=== PATIENT | male | born 1965 | race Caucasian/White ===

== ENCOUNTER 2019-11-10 08:31 | Emergency (ER) | payer OTHER, SELFPAY ==
[2019-11-10 08:50] VITALS: BP 166/87; PULSE 63; RESP 18; TEMP 36.2; O2SAT 95
[2019-11-10] MEDS: LIDOCAINE HCL 2% PF INJ 5 ML VIAL (08:55)
--- NOTE | 2019-11-10 08:55 | ED.GENADULT ---
HPI - General Adult General Chief complaint: Skin/Abscess/Foreign Body Stated complaint: hook in finger Source: patient Mode of arrival: ambulatory History of Present Illness HPI narrative: Steve is a 54M with a PMH of HTN, HLD, DMII that presented to the ED with a fish hook in the 4th finger of the left hand that happened 1 hour before he came in. He has no other concerns or injuries. He tried to take it out but could not get it because of the keaton. He is unsure of his last tetanus shot. Related Data Home Medications Medication Instructions Recorded Confirmed amlodipine 5 mg PO DAILY 11/10/19 11/10/19 bisoprolol fumarate 10 mg PO DAILY 11/10/19 11/10/19 clonidine HCl 0.3 mg PO HS 11/10/19 11/10/19 hydrochlorothiazide 25 mg PO DAILY 11/10/19 11/10/19 hydrocodone-acetaminophen 1 tablet PO PRN PRN 11/10/19 11/10/19 insulin glargine U-300 conc 40 unit SUBCUT DAILY 11/10/19 11/10/19 [Toujeo SoloStar U-300 Insulin] insulin lispro [Humalog U-100 40 unit SUBCUT TIDWMEAL 11/10/19 11/10/19 Insulin] metformin 500 mg PO BID 11/10/19 11/10/19 rosuvastatin 5 mg PO DAILY 11/10/19 11/10/19 Allergies Allergy/AdvReac Type Severity Reaction Status Date / Time No Known Allergies Allergy Verified 11/10/19 09:04 Review of Systems Constitutional: Constitutional: Reports no additional constitutional complaints Eyes: Eyes: Reports no additional eye complaints ENT: Reports system reviewed and no additional complaints, except as documented Cardiovascular: Cardiovascular: Reports no additional cardiovascular complaints Respiratory: Respiratory: Reports no additional respiratory complaints Gastrointestinal: Gastrointestinal: Reports no additional gastrointestinal complaints Genitourinary: Genitourinary: Reports no additional male genitourinary complaints Musculoskeletal: Musculoskeletal: Reports no additional musculoskeletal complaints Integumentary/Breasts: Skin/Breast: Reports as per HPI Neurologic: Reports system reviewed and no additional complaints, except as documented Psychiatric: Psychiatric: Reports no additional psychiatric complaints Endocrine: Endocrine: Reports no additional endocrine complaints Hematologic/Lymphatic: Hematologic/Lymphatic: Reports no additional hematologic/lymphatic complaints Allergic/Immunologic: Allergic/Immunologic: Reports no additional allergic/immunologic complaints Exam Const: General: no acute distress Orientation/consciousness: patient oriented x3 Limitations: No altered mental status HENMT: Head: normal to inspection Eyes: Conjunctivae: conjunctivae normal Pupils: Equal, round and reactive pupils present Neck: Neck: normal visual inspection Chest: Chest palpation & inspection: normal inspection of the chest Resp: Effort & Inspection: normal respiratory effort Cardio: Rate: regular rate Other: no edema Skin: Other: small 1.5 cm fish hook lodged on on the lateral side of the 4th digit of the left hand Neuro: General: patient oriented x3 and moves all extremities Extrem: General: normal to inspection Psych: Mental Status: mental status grossly normal Course Course Emergency Course: Steve was seen and evaluated. He fish hook was removed as below and he was discharged. Procedures Foreign Body Removal Foreign Body #1: Site: left and other (hand ) Description of foreign body: fish hook Sedation/Analgesia: none Technique: removal with forceps Confirmed by:: direct visualization Complications: none Post-procedure exam: awake, alert Neurovascular: normal capillary fill Foreign Body Removal Narrative: The area was anesthesized with 2% lidocaine w/o epi. the fish hook was cut in two with wire cutters. The remaining portion was pushed through and came out in 1 piece without complication. The area was then cleaned and bandaged. Discharge Plan Discharge Clinical Impression: Fish hook injury of left hand
[2019-11-10] MEDS: TETANUS,DIPHTHERIA,AC PERTUSSIS ADULT 0.5 ML (ADACEL) IM (09:13)
[2019-11-10 09:15] VITALS: BP 140/82; PULSE 72; RESP 18; TEMP 36.6; O2SAT 97
== END 2019-11-10 09:20 | disposition home or self-care (01) ==
PROVIDERS: Emergency Provider Family Medicine
DX: S61.432A Puncture wound without foreign body of left hand, initial encounter (principal); W45.8XXA Other foreign body or object entering through skin, initial encounter
CPT/HCPCS: 90471; 90715; 99282

== ENCOUNTER 2023-06-25 12:20 | Emergency (ER) | payer OTHER, SELFPAY ==
[2023-06-25] VITALS (20 sets, daily range): BP systolic 124–179; BP diastolic 70–90; PULSE 65–85; RESP 15–20; TEMP 36.7; O2SAT 90–99
--- NOTE | ~2023-06-25 | XR_ITS ---
XR chest 2V DATE: 06/25/2023 13:03 INDICATION: Cough and wheezing for one month TECHNIQUE: 2 views COMPARISON: None FINDINGS: Status post anterior cervical spine surgical fusion at C6-7. Postoperative change at left shoulder. Heart size is within normal range. No hilar or mediastinal enlargement. No pulmonary infiltrate or co nsolidation, pleural effusion or pulmonary congestion or pneumothorax. Included skeletal structures are otherwise unremarkable. IMPRESSION: No active cardiopulmonary disease Reviewed, dictated and finalized at location A.
--- NOTE | 2023-06-25 12:31 | ECG_ITS ---
Measurements Intervals [place] Rate: 65 P: 28 NH: 183 QRS: -19 QRSD: 102 T: 11 QT: 383 QTc: 399 Interpretive Statements SINUS RHYTHM NO PREVIOUS ECG AVAILABLE FOR COMPARISON Electronically Signed On 06-25-2023 13:17:09 CDT by Chelsea Nagel M.D.
--- NOTE | 2023-06-25 12:31 | PC.NURSE ---
pt now complaint of chest pain/tightness. ekg order placed.
--- NOTE | 2023-06-25 12:45 | ED.GENADULT ---
HPI - General Adult General Chief complaint: Urogenital-Male Stated complaint: shortness of breath, urine dark Source: patient Mode of arrival: ambulatory Limitations: no limitations History of Present Illness HPI narrative: 58-year-old white male complains of mid back pain tightness when he takes a deep breath he has had a chronic cough without any changes. Says he has had some phlegm and a dry mouth. He has had 25 lb weight loss since being on Monjoro for weight loss. He has had chronic cough. She has had chronic hoarseness since 2018 and then since the last 6 months. He has had nausea from his medicine for weight loss denies any diarrhea or bleeding or bruising swelling lumps or bumps rash or itching. Denies any problems voiding he said his urines darker today or maybe since yesterday he is on sleep apnea CPAP he thinks he might have a lung infection from it because he has not been keeping it very clean. Denies any anterior chest pain denies any shortness of breath but feels tight in the back when takes a deep breath. He has not had any history of lung disease or venous thromboembolism. He has a history hypertension diabetes hyperlipidemia chronic left shoulder pain. He took a [place] before coming in. He has not seen his primary care provider Dr. Win in 3 months. He does see a cleat thrower but not seen 1 since 2018. Denies any other complaints Related Data Home Medications Medication Instructions Recorded Confirmed amlodipine 5 mg tablet 5 mg PO DAILY 11/10/19 06/25/23 bisoprolol fumarate 10 mg tablet 10 mg PO DAILY 11/10/19 06/25/23 clonidine HCl 0.3 mg tablet 0.3 mg PO HS 11/10/19 06/25/23 hydrochlorothiazide 25 mg tablet 25 mg PO DAILY 11/10/19 06/25/23 hydrocodone 10 mg-acetaminophen 1 tablet PO PRN PRN Pain 11/10/19 06/25/23 325 mg tablet insulin glargine U-300 conc 300 100 unit subcut DAILY 11/10/19 06/25/23 unit/mL (1.5 mL) subcutaneous pen (Toujeo SoloStar U-300 Insulin) insulin lispro 100 unit/mL 30 unit subcut TIDWMEAL 11/10/19 06/25/23 subcutaneous solution (Humalog U-100 Insulin) rosuvastatin 5 mg tablet 5 mg PO DAILY 11/10/19 06/25/23 tirzepatide 5 mg/0.5 mL 5 mg subcut WEEKLY 06/25/23 06/25/23 subcutaneous pen injector (Ethan) Allergies Allergy/AdvReac Type Severity Reaction Status Date / Time No Known Allergies Allergy Verified 11/10/19 09:04 Review of Systems Review of Systems: All systems reviewed & are unremarkable except as noted in HPI and below PMFSH Comments retired from the [employer] out[employer] office Exam Narrative: White male morbidly obesepatient with no apparent distress.? Head normocephalic, atraumatic.? Eyes conjunctiva pink sclera nonicteric.? Extraocular movements are intact.? Ears externally normal.? Oropharynx is clear with moist mucous membranes without exudates.? Neck is supple nontender no lymphadenopathy.? Back is minimally tender right parathoracic area. no CVA tenderness.? Lungs are clear.? Heart is regular rate and rhythm without murmurs gallops or rubs.? Chest wall nontender.? Abdomen is soft and nontender no hepatosplenomegaly or masses no CVA tenderness no abdominal bruits.? Extremities no cyanosis clubbing or edema.? Skin is warm and dry without rashes or lesions.? Neurological patient is alert and oriented x4.? Motor and sensory grossly intact.? Gait is normal. Course Vital Signs Vital signs: Vital Signs Temperature 36.7 C 06/25/23 12:20 Pulse Rate 71 06/25/23 12:20 Respiratory Rate 20 06/25/23 12:20 Blood Pressure 179/90 H 06/25/23 12:20 Pulse Oximetry 97 06/25/23 12:20 Oxygen Delivery Room Air 06/25/23 12:20 Temperature 36.7 C 06/25/23 12:20 Pulse Rate 73 06/25/23 15:17 Respiratory Rate 17 06/25/23 15:01 Blood Pressure 150/75 H 06/25/23 15:16 Pulse Oximetry 93 06/25/23 15:16 Oxygen Delivery Room Air 06/25/23 15:16 Medical Decision Making MDM Narrative Medical decision making na
[2023-06-25] MEDS: ASPIRIN 81 MG CHEWABLE TABLET 324 MG PO (13:13)
[2023-06-25] MEDS: IPRATROPIUM 0.5 MG/ALBUTEROL SULFATE 2.5 MG AMPUL.NEB 3 ML INHALATION (13:14)
[2023-06-25 13:17] LABS: Hematocrit 45.2 % (40.0-54.0); Hemoglobin 15.3 g/dL (14.0-18.0); Mean Corpuscular HGB Conc 33.8 g/dL (32-36); Mean Corpuscular Hemoglobin 29.7 pg (27.0-31.0); Mean Corpuscular Volume 87.8 fL (78.0-102.0); Mean Platelet Volume 9.1 fl (8.7-11.0); Platelet Count Result 243 K/mm3 (150-420); Red Blood Count 5.15 M/mm3 (4.70-6.10); Red Cell Distribution Width 13.2 % (11.6-14.4); White Blood Count 8.3 K/mm3 (4.8-10.8)
[2023-06-25 13:25] LABS: Appearance Urine Clear (Clear); Bilirubin Urine Negative (Negative); Blood Urine Negative (Negative); Color Urine Yellow (Yellow); Glucose Urine UA Trace (Negative); Ketones Urine Negative (Negative); Leukocyte Esterase Ur Negative LEU/UL (Negative); Nitrate Urine Negative (Negative); Protein Urine 1+ (Negative); Specific Grav Ur >= 1.030 (1.010-1.020); Urobilinogen Urine 0.2 mg/dL (0.2-1.0)
[2023-06-25 13:31] LABS: D Dimer 0.32 mg/L (0.19-0.50); INR 0.9; Partial Thromboplastin Time 24.7 Sec (23.9-30.70); Prothrombin Time 10.1 Seconds (9.50-12.1)
[2023-06-25 13:35] LABS: Alanine Aminotransferase 140 U/L (16-63); Albumin Level 3.9 g/dL (3.4-5.0); Alkaline Phosphatase 93 U/L (46-116); Anion Gap 8 mmol/L (4-12); Aspartate Amino Transferase 87 U/L (15-37); Bilirubin,Total 1.4 mg/dL (0.00-1.00); Blood Urea Nitrogen 16 mg/dL (7-18); Calcium 9.2 mg/dL (8.5-10.1); Carbon Dioxide 30 mmol/L (21-32); Chloride 100 mmol/L (98-108); Estimated CRCL calculation 71 ml/min; Estimated Glomerular Filt Rate 59; Glucose 209 mg/dL (70-99); Lactic Acid Reflex 1.3 mmol/L (0.4-2.0); Magnesium 1.8 mg/dL (1.8-2.4); Osmolality Calculated 293 mOsm/kg (285-295); Potassium 4.4 mmol/L (3.5-5.1); Sodium 138 mmol/L (136-145); Total Protein 7.3 g/dL (6.4-8.2); Troponin I 6.3 ng/L (0.00-60.4)
[2023-06-25 13:41] LABS: Amphetamine Screen Urine Negative (Negative); Barbiturate Screen Urine Negative (Negative); Benzodiazepines Screen Urine Negative (Negative); Cannabinoid Screen Urine Negative (Negative); Cocaine Screen Urine Negative (Negative); Methadone Screen Urine Negative (Negative); Opiate Screen Urine Positive (Negative); Phencyclidine Screen Urine Negative (Negative)
[2023-06-25 13:42] LABS: Add Urine Microscopic? YES; Bacteria Urine Trace /hpf; Mucus Urine Moderate /lpf; RBC Urine None seen /hpf (0-2); Squamous Epithelial Cell Urine Rare /hpf (Few); WBC Urine None seen /hpf (0-3)
== END 2023-06-25 15:49 | disposition home or self-care (01) ==
PROVIDERS: Emergency Provider Emergency Medicine
DX: J20.9 Acute bronchitis, unspecified (principal); J45.909 Unspecified asthma, uncomplicated; M54.6 Pain in thoracic spine; R74.01 Elevation of levels of liver transaminase levels; I10 Essential (primary) hypertension; E11.9 Type 2 diabetes mellitus without complications; E78.5 Hyperlipidemia, unspecified; G89.29 Other chronic pain; M25.512 Pain in left shoulder; Z79.4 Long term (current) use of insulin
CPT/HCPCS: 36415; 71046; 80053; 80307; 81001; 83605; 83735; 84484; 85027; 85380; 85610; 85730; 93005; 94640; 99284; A9270

== ENCOUNTER 2024-02-19 01:37 | Emergency (ER) | payer OTHER, SELFPAY ==
--- NOTE | ~2024-02-19 | CT_ITS ---
EXAMINATION: CT abdomen pelvis wo con DATE: 02/19/2024 02:20 INDICATION: Bladder pain. TECHNIQUE: Computed tomography (CT) of the abdomen and pelvis was performed without intravenous contr ast. Automated exposure control and iterative reconstruction technique were employed. The dose-length product was 1486.18 mGy-cm. COMPARISON: CT abdomen and pelvis 09/26/2010 FINDINGS: The visualized portions of the lung bases demonstrate mild atelectasis. No pleural effusion . The heart size is normal. There are coronary artery calcifications. No pericardial effusion. There is diffuse hepatic steatosis. The gallbladder, spleen, pancreas, adrenal glands, and left kidney are normal. There are cysts in the right kidney measuring up to 2.4 cm. There is no urolithiasis. The pro state is mildly enlarged. There is a right inguinal hernia containing fat. There are no dilated loops of bowel. The appendix is normal. There is an umbilical hernia containing fat. There is mild subcuta neous fat stranding in anterior abdominal wall, consistent with inflammation versus scarring. There a re no pathologically enlarged lymph nodes. There is no free intraperitoneal fluid. There is mild thor acic and lumbar spondylosis. IMPRESSION: 1. No urolithiasis. 2. Diffuse hepatic steatosis. 3. Umbilical hernia containing fat. Right inguinal hernia containing fat. Reviewed, dictated and finalized at location A. N MANAGER
[2024-02-19 01:43] VITALS: BP 174/84; PULSE 79; RESP 18; TEMP 37; O2SAT 97
[2024-02-19] MEDS: SODIUM CHLORIDE 0.9% IV 1,000 ML 999 ML IV CONT (02:17)
--- NOTE | 2024-02-19 02:24 | ED.ABDPAIN ---
HPI - Abdominal Pain General Chief Complaint: Abdominal Pain Stated Complaint: ABDOMINAL PAIN Time Seen by Provider: 02/19/24 02:02 Source: patient Mode of arrival: ambulatory Limitations: no limitations History of Present Illness HPI narrative: Patient is a 58 Year old male with a significant past medical history that presents today for abdominal pain. Patient has nominal pain localizes in the left lower quadrant is that radiates to the left flank. He states that the pain got better by the time he got to the hospital. He does have a history of renal stones and think this could be a other stone. He says it does not exactly feel like the rest of the stealth what could be. He was just worried because the pain came on so son but also away pretty quickly as well. MD elicited complaint: abdominal pain and flank pain Pertinent past history: kidney stones Onset (ago): hour(s) Pain Consistency: intermittent Location: LLQ and L flank Severity: mild Pain scale (0-10): 1 Quality: cramping Radiation: none Migration to: no migration Exacerbating factors: nothing Relieving factors: nothing Associated symptoms: denies other symptoms Related Data Home Medications Medication Instructions Recorded Confirmed amlodipine 5 mg tablet 5 mg PO DAILY 11/10/19 06/25/23 bisoprolol fumarate 10 mg tablet 10 mg PO DAILY 11/10/19 06/25/23 clonidine HCl 0.3 mg tablet 0.3 mg PO HS 11/10/19 06/25/23 hydrochlorothiazide 25 mg tablet 25 mg PO DAILY 11/10/19 06/25/23 hydrocodone 10 mg-acetaminophen 1 tablet PO PRN PRN Pain 11/10/19 06/25/23 325 mg tablet insulin glargine U-300 conc 300 100 unit subcut DAILY 11/10/19 06/25/23 unit/mL (1.5 mL) subcutaneous pen (Toujeo SoloStar U-300 Insulin) insulin lispro 100 unit/mL 30 unit subcut TIDWMEAL 11/10/19 06/25/23 subcutaneous solution (Humalog U-100 Insulin) rosuvastatin 5 mg tablet 5 mg PO DAILY 11/10/19 06/25/23 tirzepatide 5 mg/0.5 mL 5 mg subcut WEEKLY 06/25/23 06/25/23 subcutaneous pen injector (Ethan) Allergies Allergy/AdvReac Type Severity Reaction Status Date / Time No Known Allergies Allergy Verified 11/10/19 09:04 Review of Systems Review of Systems: All systems reviewed & are unremarkable except as noted in HPI and below Constitutional: Constitutional: Reports as per HPI Eyes: Eyes: Reports no additional eye complaints ENT: Reports system reviewed and no additional complaints, except as documented Cardiovascular: Cardiovascular: Reports no additional cardiovascular complaints Respiratory: Respiratory: Reports no additional respiratory complaints Gastrointestinal: Gastrointestinal: Reports as per HPI and Reports abdominal pain Genitourinary: Genitourinary: Reports no additional male genitourinary complaints Musculoskeletal: Musculoskeletal: Reports no additional musculoskeletal complaints Integumentary/Breasts: Skin/Breast: Reports system reviewed and no additional complaints, except as docu Neurologic: Reports system reviewed and no additional complaints, except as documented Psychiatric: Psychiatric: Reports no additional psychiatric complaints Endocrine: Endocrine: Reports no additional endocrine complaints Hematologic/Lymphatic: Hematologic/Lymphatic: Reports no additional hematologic/lymphatic complaints Allergic/Immunologic: Allergic/Immunologic: Reports no additional allergic/immunologic complaints Exam Const: General: healthy appearing Nutritional Appearance: well nourished Orientation/consciousness: patient oriented x3 HENMT: Head: normal to inspection Ears: external ears normal Face/Nose/Sinus: Normal external nose present Face and sinus: normal facial exam Eyes: Conjunctivae: conjunctivae normal Pupils: Equal, round and reactive pupils present EOM: EOMs intact bilaterally Neck: Neck: normal visual inspection Chest: Chest palpation & inspection: normal inspection of the chest Resp: Effort & Inspection: normal respiratory effort Auscultation: clear to auscultation bilaterally Cardio: Rate: regular rate Rhythm: regular rhythm GI: GI Palp: Yes Soft to palpation : General: Yes bladder normal to palpation Back/Spine/Pelvis: Back: no CVA tenderness Skin: General skin exam: normal color Rashes: no rashes Wounds: no wounds Neuro: General: patient oriented x3, moves all extremities, no meningeal signs and no focal motor deficits Extrem: General: normal to inspection and no clubbing, cyanosis or edema Psych: Mental Status: mental status grossly normal Affect: normal affect Attitude: cooperative Course Vital Signs Vital signs: Vital Signs Temperature 98.6 F 02/19/24 01:43 Pulse Rate 79 02/19/24 01:43 Respiratory Rate 18 02/19/24 01:43 Blood Pressure 174/84 H 02/19/24 01:43 Pulse Oximetry 97 02/19/24 01:43 Oxygen Delivery Room Air 02/19/24 01:43 Temperature 98.6 F 02/19/24 01:43 Pulse Rate 75 02/19/24 03:44 Respiratory Rate 18 02/19/24 03:44 Blood Pressure 152/74 H 02/19/24 03:44 Pulse Oximetry 97 02/19/24 03:44 Oxygen Delivery Room Air 02/19/24 03:44 MDM - Abdominal Pain MDM Narrative Medical decision making narrative: Patient does have a history of kidney stones and describes the pain has somewhat of a kidney stone with the left flank pain and lower left quadrant abdominal pain. Because this history will do a CT scan abdomen pelvis without contrast check for any kidney stones or any other etiologies. He says the pain has subsided now but is not bad will also do blood work and do CBC CMP lipase. Blood work came back within normal range and the CT scan showed just hepatic steatosis and no other abnormalities. Differential Diagnosis Differential diagnosis: Likely abdominal pain Medical Records Attestation: I reviewed the patient's medical records. Lab Data Attestation: I reviewed the patient's lab results. 02/19/24 02:25 02/19/24 02:25 Labs: Lab Results 02/19/24 Range/Units 02:25 WBC 9.1 (4.8-10.8) K/mm3 RBC 4.81 (4.70-6.10) M/mm3 Hgb 14.4 (14.0-18.0) g/dL Hct 41.8 (40.0-54.0) % MCV 86.9 (78.0-102.0) fL MCH 29.9 (27.0-31.0) pg MCHC 34.4 (32-36) g/dL RDW 12.6 (11.6-14.4) % Plt Count 242 (150-420) K/mm3 MPV 9.3 (8.7-11.0) fl Immature Gran % (Auto) 0.7 H (0.0-0.0) % Neut % (Auto) 71.1 H (50.0-70.0) % Lymph % (Auto) 17.8 L (18.0-42.0) % [place] % (Auto) 6.0 (2.0-11.0) % Eos % (Auto) 3.7 (1.0-6.0) % Baso % (Auto) 0.7 (0.0-1.0) % Lymph # (Auto) 1.62 (1.10-4.50) K/mm3 [place] # (Auto) 0.55 (0.10-0.90) K/mm3 Eos # (Auto) 0.34 (0.02-0.50) K/mm3 Baso # (Auto) 0.06 (0.00-0.10) K/mm3 Abs Immat Gran (auto) 0.06 H (0.00-0.00) K/mm3 Absolute Neuts (auto) 6.47 (1.70-7.20) K/mm3 Absolute Nucleated RBC 0.00 (0.00-0.00) K/mm3 Nucleated RBC % 0.0 (0-0.0) % Sodium 138 (136-145) mmol/L Potassium 4.2 (3.5-5.1) mmol/L Chloride 103 (98-108) mmol/L Carbon Dioxide 25 (21-32) mmol/L Anion Gap 10 (4-12) mmol/L BUN 16 (7-18) mg/dL Creatinine 1.12 (0.70-1.30) mg/dL Estim Creat Clear Calc 77 ml/min Estimated GFR > 60 (59 - ) Glucose 278 H (70-99) mg/dL Calculated Osmolality 297 H (285-295) mOsm/kg Calcium 9.1 (8.5-10.1) mg/dL Total Bilirubin 0.8 (0.00-1.00) mg/dL AST 16 (15-37) U/L ALT 35 (16-63) U/L Alkaline Phosphatase 79 (46-116) U/L Total Protein 6.8 (6.4-8.2) g/dL Albumin 3.5 (3.4-5.0) g/dL Lipase 87 H (16-77) U/L Urine Color Yellow (Yellow) Urine Appearance Clear (Clear) Urine pH 5.5 (5.0-8.0) Ur Specific [place] >= 1.030 H (1.010-1.020) Urine Protein 2+ H (Negative) Urine Glucose (UA) 3+ H (Negative) Urine Ketones Trace H (Negative) Ur Blood (Man) 2+ H (Negative) Urine Nitrate Negative (Negative) Urine Bilirubin Negative (Negative) Urine Urobilinogen 0.2 (0.2-1.0) mg/dL Leukocyte Esterase Rfl Negative (Negative) JARED/UL Urine RBC 11-20 H (0-2) /hpf Amorphous Sediment Moderate H (None) Urine Bacteria 1+ H (None) /hpf Urine Mucus Heavy H /lpf Imaging Data Attestation: I personally reviewed and interpreted this imaging study as follows: Discharge Plan Discharge Clinical Impression: Abdominal pain, Abdominal muscle strain Patient Disposition: Home, Self-Care Condition: Stable Instructions: Abdominal Pain (ED) Prescriptions: No Action clonidine HCl 0.3 mg tablet 0.3 mg PO HS amlodipine 5 mg tablet 5 mg PO DAILY hydrocodone-acetaminophen 10-325 mg tablet 1 tablet PO PRN PRN (Reason: Pain) bisoprolol fumarate 10 mg tablet 10 mg PO DAILY hydrochlorothiazide 25 mg tablet 25 mg PO DAILY insulin lispro [Humalog U-100 Insulin] 100 unit/mL solution 30 unit subcut TIDWMEAL rosuvastatin 5 mg tablet 5 mg PO DAILY insulin glargine U-300 conc [Toujeo SoloStar U-300 Insulin] 300 unit/mL (1.5 mL) insulin pen 100 unit SUBCUT DAILY Mounjaro 5 mg/0.5 mL pen injector 5 mg SUBCUT WEEKLY prednisone 20 mg tablet 40 mg PO DAILY 5 Days Qty: 10 0RF albuterol sulfate [Ventolin HFA] 90 mcg/actuation HFA aerosol inhaler 2 puff inhalation QID 10 Days Qty: 8.5 0RF azithromycin [Zithromax Z-Jorge Luis] 250 mg tablet See Rx Instructions PO .COMPLEX Qty: 6 0RF Rx Instructions: For 250 mg dose pack: take 500 mg today (day 1), then 250 mg for 4 days (days 2-5) Follow-up/Referrals: UNKNOWN,DOCTOR [Primary Care Provider] - Time of Disposition: 03:52
[2024-02-19 02:40] LABS: Basophils Absolute Auto 0.06 K/mm3 (0.00-0.10); Basophils Percent Auto 0.7 % (0.0-1.0); Eosinophils Absolute Auto 0.34 K/mm3 (0.02-0.50); Eosinophils Percent Auto 3.7 % (1.0-6.0); Hematocrit 41.8 % (40.0-54.0); Hemoglobin 14.4 g/dL (14.0-18.0); Immature Granulocyte Absolute 0.06 K/mm3 (0.00-0.00); Immature Granulocyte Percent A 0.7 % (0.0-0.0); Lymphocytes Absolute Auto 1.62 K/mm3 (1.10-4.50); Lymphocytes Percent Auto 17.8 % (18.0-42.0); Mean Corpuscular HGB Conc 34.4 g/dL (32-36); Mean Corpuscular Hemoglobin 29.9 pg (27.0-31.0); Mean Corpuscular Volume 86.9 fL (78.0-102.0); Mean Platelet Volume 9.3 fl (8.7-11.0); Monocytes Absolute Auto 0.55 K/mm3 (0.10-0.90); Neutrophils Absolute Auto 6.47 K/mm3 (1.70-7.20); Neutrophils Percent Auto 71.1 % (50.0-70.0); Platelet Count Result 242 K/mm3 (150-420); Red Blood Count 4.81 M/mm3 (4.70-6.10); Red Cell Distribution Width 12.6 % (11.6-14.4); White Blood Count 9.1 K/mm3 (4.8-10.8)
[2024-02-19 02:56] LABS: Alanine Aminotransferase 35 U/L (16-63); Albumin Level 3.5 g/dL (3.4-5.0); Alkaline Phosphatase 79 U/L (46-116); Anion Gap 10 mmol/L (4-12); Bilirubin,Total 0.8 mg/dL (0.00-1.00); Blood Urea Nitrogen 16 mg/dL (7-18); Calcium 9.1 mg/dL (8.5-10.1); Carbon Dioxide 25 mmol/L (21-32); Chloride 103 mmol/L (98-108); Glucose 278 mg/dL (70-99); Lipase 87 U/L (16-77); Osmolality Calculated 297 mOsm/kg (285-295); Potassium 4.2 mmol/L (3.5-5.1); Sodium 138 mmol/L (136-145); Total Protein 6.8 g/dL (6.4-8.2)
[2024-02-19 03:03] LABS: Estimated Glomerular Filt Rate > 60
[2024-02-19 03:05] LABS: Estimated CRCL calculation 77 ml/min
[2024-02-19 03:06] LABS: Aspartate Amino Transferase 16 U/L (15-37)
[2024-02-19 03:18] LABS: Add Urine Microscopic? YES; Appearance Urine Clear (Clear); Bilirubin Urine Negative (Negative); Blood Urine 2+ (Negative); Color Urine Yellow (Yellow); Glucose Urine UA 3+ (Negative); Ketones Urine Trace (Negative); Leukocyte Esterase Ur Negative LEU/UL (Negative); Nitrate Urine Negative (Negative); Protein Urine 2+ (Negative); Specific Grav Ur >= 1.030 (1.010-1.020); Urobilinogen Urine 0.2 mg/dL (0.2-1.0); pH Urine 5.5 (5.0-8.0)
[2024-02-19 03:26] LABS: Amorphous Sediment Urine Moderate
[2024-02-19 03:27] LABS: Bacteria Urine 1+ /hpf; Mucus Urine Heavy /lpf
[2024-02-19 03:44] VITALS: BP 152/74; PULSE 75; RESP 18; O2SAT 97
[2024-02-19 04:02] VITALS: BP 135/75; PULSE 80; RESP 18; TEMP 36.6; O2SAT 98
== END 2024-02-19 04:02 | disposition home or self-care (01) ==
PROVIDERS: Emergency Provider Family Medicine
DX: S39.011A Strain of muscle, fascia and tendon of abdomen, initial encounter (principal); X58.XXXA Exposure to other specified factors, initial encounter
CPT/HCPCS: 36415; 74176; 80053; 81001; 83690; 85025; 96360; 99284; J7030